=== PATIENT | female | born 1980 | race Caucasian/White ===

== ENCOUNTER 2018-10-30 17:29 | Emergency (ER) | payer OTHER, SELFPAY ==
[2018-10-30 17:30] VITALS: BP 136/73; PULSE 54; RESP 18; TEMP 37; O2SAT 99; BMI 20.3
--- NOTE | 2018-10-30 18:25 | US_ITS ---
STUDY: ULTRASOUND OF THE FEMALE PELVIS - COMPLETE REASON FOR EXAM: Female, 38 years old. Pain TECHNIQUE: Endovaginal TECHNICAL QUALITY: Adequate. COMPARISON: None. FINDINGS: The uterus has been surgically removed. The right ovary is visualized. The right ovary measures 3.7 x 2.6 x 2.1 cm. There is a 1.8 cm right ovarian cyst. There is normal arterial and normal venous vascularity. The left ovary is visualized. The left ovary measures 2.9 x 2.4 x 2.3 cm. There is a 1.4 cm left ovarian cyst. There is normal arterial and normal venous vascularity. There is no fluid in the cul-de-sac. US/Transvaginal Non- IMPRESSION: Bilateral ovarian cysts. Status post hysterectomy. Electronically Signed: Neno Newotn DO at 19:31 EDT Tel [phone], Service support ,
--- NOTE | 2018-10-30 18:26 | CT_ITS ---
STUDY: CT ABDOMEN AND PELVIS WITH AND WITHOUT CONTRAST REASON FOR EXAM: Female, 38 years old. Lower pelvic pain RADIATION DOSAGE (If Supplied By Facility): CTDIvol = ( 8.55 ) mGy, DLP = ( 568.75 ) mGycm TECHNIQUE: Transaxial images were obtained from the dome of the diaphragm to the symphysis pubis without oral contrast. 100 IV Isovue 300 was administered. Sagittal and coronal images were reconstructed. Individualized dose optimization techniques were used for this CT. COMPARISON: None. FINDINGS: The visualized lung bases are unremarkable. The visualized portions of the heart are within normal limits. Normal liver. Normal gallbladder and extrahepatic biliary system. Normal spleen. Normal pancreas. Normal bilateral adrenal glands. Normal right kidney. Normal left kidney. Normal visualized stomach. Normal small intestine. Normal colon. The appendix is not visualized. Normal abdominal aorta. Normal inferior vena cava. Normal retroperitoneum. Normal urinary bladder. Nonvisualization of the uterus. Normal abdominal wall. Normal osseous structures. CT/CT Abd/Pelvis W/WO Contrast IMPRESSION: Normal unenhanced and enhanced CT of the abdomen and pelvis. Electronically Signed: Neno Newton DO at 20:05 EDT Tel [phone], Service support ,
--- NOTE | 2018-10-30 18:27 | ED.DCSUM_ITS ---
- ER Visit Summary Date of Service: 10/30/18 Chief Complaint: Abdominal pain, dysuria History of Present Illness: The patient is a 38 F presenting with abdominal pain, dysuria. She states this started over the weekend. She states she had a partial hysterectomy August 03. This was due to concern for cancer. She states all of her tests have been negative for cancer. She states she had intercourse for the first time since the surgery this weekend. She started having pain lower abdomen. She also complains of dysuria. She denies bleeding other than mild pink tinged discharge. Denies other complaints. Physical Examination: Vitals are stable. Patient is afebrile. Alert no acute distress. HEENT exam is unremarkable. Neck is supple. Lungs are clear and equal bilaterally. Heart is regular rate and rhythm. Abdomen is soft suprapubic tenderness with no rebound or guarding : scar tissue surrounding vaginal cuff with minimal bleeding, no discharge Extremities are unremarkable. Skin is warm and dry. Remainder of exam is unremarkable. Emergency Department Course and Treatment: She was given morphine, Zofran IV. Pelvic ultrasound shows Bilateral ovarian cysts. Status post hysterectomy. CT abdomen pelvis shows no acute process. CBC normal except platelet 145. Chemistries unremarkable. Urinalysis unremarkable. Patient is resting comfortably. She is advised to use Aleve for pain at home. She is advised to f rajendralow closely with her [employer] SECONDS SOR[employer]. Advised to return to ED for worsening complaints. Disposition: Discharge home Impression: Pelvic pain, bilateral ovarian cysts This note was generated with [employer] dictation software. It may contain incorrect words, spelling, and punctuation that were not noted in review of the chart prior to signing ED Disposition - Plan for ED Patient: Instructions: ABDOMINAL PAIN, Unknown Cause, (Female), Ovarian Cyst Referrals: NOT,DEFINED [NON-STAFF] -
[2018-10-30 18:42] LABS: Bacteria 0 SEEN /hpf (None Seen); Mucous, Urine 0 SEEN /hpf (<or=2+); Red Blood Cells-Urine 0 SEEN /hpf (0-5); White Blood Cells 0 SEEN /hpf (0-5)
[2018-10-30 18:44] LABS: Absolute Lymphocyte Count 1.34 X10^3/uL (0.83-4.51); Absolute Neutrophil Count 4.3 X10^3/uL (2.0-7.7); Basophil# 0.03 X10^3/uL; Basophil% 0.4 % (0-1); Eosinophil# 0.27 X10^3/uL; Hematocrit 40.6 % (37-47); Hemoglobin 13.5 g/dL (12.0-15.0); Lymphocyte # 1.34 X10^3/ul (4.0); Lymphocyte % 19.9 % (19-41); Mean Corp Hgb Conc 33.3 g/dL (32-36); Mean Corpuscular Hgb 31.1 pg (27.0-32.0); Mean Corpuscular Volume 93.5 fL (81-99); Mean Platelet Vol. 10.2 fl (6.2-12.0); Monocyte# 0.78 X10^3/uL; Monocyte% 11.6 % (0-10); NRBC Flagged by Analyzer 0 % (0-5); Neutrophil # 4.29 X10^3/uL (2.7-7.7); Platelet Count 145 K/mm3 (150-450); RBC Distribution Width CV 12.4 % (11.6-14.6); RBC Distribution Width SD 43.4 fl (35.1-43.9); Red Blood Count 4.34 M/mm3 (4.2-5.4); White Blood Count 6.7 K/mm3 (4.4-11.0)
[2018-10-30 18:55] LABS: Color, Urine Yellow (Yellow); Glucose, Dipstick Normal (Normal); Ketone-Dipstick Negative (Negative); Leukocyte Esterase-Dipstick Negative /ul (Negative); Nitrite-Dipstick Negative (Negative); Occult Blood-Urine Negative /ul (Negative); Protein-Dipstick Negative (Negative); Urine Bilirubin Dipstick Negative (Negative); Urine Clarity Clear (Clear); Urine Urobilinogen Normal (Normal); Urine pH 6.5 (5.0 - 8.0)
[2018-10-30 19:05] LABS: Squamous Epithelial Cells - UA 0-5 SEEN /hpf (5-10)
[2018-10-30 19:07] LABS: Anion Gap 5 (5-15); BUN 9 mg/dL (7-18); BUN/Creat Ratio 14.1 RATIO (10-20); Chloride 108 mmol/L (98-107); Creatinine, Serum 0.64 mg/dL (0.55-1.02); EST Glomerular Filtration Rate 109 mL/min (>60); Est Glom Filt Rate - Afr Amer 132 mL/min (>60); Estimated Creatinine Clearance 96.22 ml/min; Glucose 86 mg/dL (74-106); Potassium 3.9 mmol/L (3.5-5.1); Sodium Level 141 mmol/L (136-145)
[2018-10-30] MEDS: Morphine 4 MG/ML Syringe IV (19:23)
[2018-10-30] MEDS: Ondansetron 4 MG/2 ML Vial IV (19:23)
[2018-10-30] MEDS: 0.9% Normal Saline 1,000 ML 1000 ML IV (19:23)
[2018-10-30 19:48] VITALS: BP 136/73; PULSE 54; RESP 18; TEMP 37; O2SAT 99
[2018-10-30 19:56] VITALS: BP 117/73; PULSE 52; RESP 16; O2SAT 100
--- NOTE | 2018-10-30 21:02 | ED.DEP ---
ED Disposition - Plan for ED Patient: Instructions: Ovarian Cyst, ABDOMINAL PAIN, Unknown Cause, (Female) Referrals: NOT,DEFINED [NON-STAFF] -
[2018-10-30 21:21] VITALS: BP 122/66; BP 126/73; PULSE 61; PULSE 96; RESP 16; RESP 17; O2SAT 97; O2SAT 99
== END 2018-10-30 21:22 | disposition home or self-care (01) ==
LOC: ED 18:41
PROVIDERS: Emergency Provider Emergency Medicine; Family Provider Family Medicine; PCP Family Medicine
DX: N83.202 Unspecified ovarian cyst, left side (principal); N83.201 Unspecified ovarian cyst, right side; R10.2 Pelvic and perineal pain; R30.0 Dysuria
CPT/HCPCS: 74178; 76830; 80048; 81001; 85025; 93976; 96361; 96374; 96375; 99283; J7030; Q9967; A4216; J2405

== ENCOUNTER 2020-01-20 10:41 | Emergency (ER) | payer BC, SELFPAY ==
[2020-01-20 10:42] VITALS: BP 157/104; PULSE 62; RESP 16; TEMP 36.3; O2SAT 100; BMI 18.8
--- NOTE | 2020-01-20 11:01 | CT_ITS ---
STUDY: CT BRAIN WITHOUT CONTRAST REASON FOR EXAM: Female, 39 years old. FELL OFF HORSE AND HIT HEAD MONDAY. SEEING RED AND GREEN OUT OF LEFT EYE YESTERDAY. PAIN IN NECK AND BACK OF HEAD, HEADACHE TODAY. SOME NAUSEA. RADIATION DOSAGE (If Supplied By Facility): CTDIvol = ( 44.99 ) mGy, DLP = ( 779.24 ) mGycm TECHNIQUE: Transaxial CT imaging of the brain was performed without administration of intravenous contrast material. Individualized dose optimization techniques were used for this CT. COMPARISON: No relevant priors. FINDINGS: Normal soft tissue structures. Normal calvarium. Normal size ventricles and extra-axial spaces for the patient''s age. Normal white matter tracts of the cerebral hemispheres. Normal basal ganglia and thalami. Normal brainstem. Normal cerebellum. There is no intracranial hemorrhage. There are no findings of an acute ischemic infarction. Normal visualized paranasal sinuses. CT/Brain/Head without Contrast IMPRESSION: Normal unenhanced CT scan of the brain. Electronically Signed: Jeanne Chino, at 11:53 EST Tel , Service support ,
--- NOTE | 2020-01-20 11:01 | CT_ITS ---
STUDY: CT CERVICAL SPINE WITHOUT CONTRAST REASON FOR EXAM: Female, 39 years old. FELL OFF HORSE AND HIT HEAD MONDAY. SEEING RED AND GREEN OUT OF LEFT EYE YESTERDAY. PAIN IN NECK AND BACK OF HEAD, HEADACHE TODAY. SOME NAUSEA. RADIATION DOSAGE (If Supplied By Facility): CTDIvol = ( 12.30 ) mGy, DLP = ( 229.50 ) mGycm TECHNIQUE: High resolution transaxial imaging was performed without contrast material. Sagittal and coronal images were reconstructed. Individualized dose optimization techniques were used for this CT. COMPARISON: None FINDINGS: Normal craniovertebral junction. Normal anterior atlantoaxial articulation. Normal odontoid process. Cervical straightening. No significant scoliosis. No acute cervical spine fracture, dislocation or osseous distraction. C2-3: Normal endplates. Normal disc height and morphology. Normal central canal and intervertebral neuroforamina. C3-4: Normal endplates. Normal disc height and morphology. Normal central canal and intervertebral neuroforamina. C4-5: Normal endplates. Normal disc height and morphology. Normal central canal and intervertebral neuroforamina. C5-6: Normal endplates. Normal disc height and morphology. Normal central canal and intervertebral neuroforamina. C6-7: Normal endplates. Normal disc height and morphology. Normal central canal and intervertebral neuroforamina. C7-T1: Normal endplates. Normal disc height and morphology. Normal central canal and intervertebral neuroforamina. Normal visualized soft tissue structures. CT/Spine Cervical without Contras IMPRESSION: Cervical spine acutely intact Cervical straightening without significant degenerative features Electronically Signed: Harry Goncalves DO at 11:32 EST Tel , Service support ,
--- NOTE | 2020-01-20 12:20 | ED.DCSUM_ITS ---
- ER Visit Summary Date of Service: 01/20/20 Chief Complaint: Fall History of Present Illness: The patient is a [address] Nicole. She reports that 3 days ago she was bucked off a horse and hit her head. She had a loss of consciousness for an unclear amount of time. She complains a headache is 5-10 severity and neck pain is 5-10 severity. She is not on anticoagulants. Patient reports that she has been nauseated. She has not vomited. She denies any back, shoulder, wrist, or hip pain. She reports that yesterday from her left eye that she saw red/green boxes flashing. She denies seeing that now. Her states that her vision is normal now. Physical Examination: Vitals: Stable. Afebrile. Neck: Mild diffuse tenderness palpation over her entire C-spine. There is no point tenderness.. Back: No vertebral tenderness. General: A&O x 3. NAD. Cardiovascular exam: Regular rate and rhythm, no murmur, rub or gallop. Respiratory exam: Chest nontender. No crepitus. Clear to auscultation bilaterally. No wheezes or stridor. Abdominal exam: Soft, nontender, nondistended, normal bowel sounds. No pain in RUQ or LUQ specifically. No peritoneal signs. Extremity: Atraumatic. No pain with range of motion. Test Results: Clinical Impression(s) from Imaging Studies Brain CT 01/20/20 11:01 IMPRESSION: Normal unenhanced CT scan of the brain. Electronically Signed: Jeanne Chino, at 11:53 EST Tel , Service support , Cervical Spine CT 01/20/20 11:01 IMPRESSION: Cervical spine acutely intact Cervical straightening without significant degenerative features Electronically Signed: Harry Goncalves DO at 11:32 EST Tel , Service support , Emergency Department Course and Treatment: Patient is resting comfortably. She refused pain or nausea medications. Treatment Plan: Patient will be discharged instructed to follow-up with her primary care physician 1 week for her concussion. She is instructed to follow- up Dr. Lucero in 1 to 2 days if her vision is not returned to normal. Return to the emergency department for any worsening symptoms. Disposition: To home in improved and stable condition. Impression: 1. Concussion. 2. Visual changes. 3. Cervical strain. This note was generated with [employer] software. It may contain incorrect words, spelling, and punctuation that were not noted in review of the chart prior to signing ED Disposition - Plan for ED Patient: Disposition: Home or Assisted Living Instructions: ED Concussion Referrals: Landon Nicole MD [Primary Care Provider] - 1 Week Landon Lucero MD [STAFF PHYSICIAN] - 1-2 Days if not improving
[2020-01-20 12:26] VITALS: BP 133/75; PULSE 52; RESP 17; O2SAT 97
== END 2020-01-20 12:27 | disposition home or self-care (01) ==
LOC: ED 11:34
PROVIDERS: Emergency Provider Emergency Medicine; PCP Family Medicine
DX: S06.0X9A Concussion with loss of consciousness of unspecified duration, initial encounter (principal); S16.1XXA Strain of muscle, fascia and tendon at neck level, initial encounter; Y93.52 Activity, horseback riding; V80.010A Animal-rider injured by fall from or being thrown from horse in noncollision accident, initial encounter
CPT/HCPCS: 70450; 72125; 99282

== ENCOUNTER 2020-08-15 18:18 | Emergency (ER) | payer BC, SELFPAY ==
[2020-08-15 18:19] VITALS: BP 150/99; PULSE 61; RESP 14; TEMP 37.1; O2SAT 95; BMI 18.7
--- NOTE | 2020-08-15 18:41 | RAD_ITS ---
STUDY: X-RAY CHEST REASON FOR EXAM: Female, 40 years old. Cough TECHNIQUE: Frontal portable view of the chest COMPARISON: None. FINDINGS: Examination is limited due to density degenerated by breast prostheses obscuring midlung zones. Upper lungs and lower lungs are clear. There is no pneumothorax, pulmonary edema or pleural effusion. Osseous structures are intact. RAD/Chest 1 View (Portable) IMPRESSION: Technically limited exam. Unable to evaluate bilateral mid lung zones. Consider performing bilateral, right and left obliques and lateral radiographic view as the next imaging step. If those are normal probability of disease is low. Electronically Signed: Brittany Fontanez MD at 19:19 EDT Tel , Service support ,
[2020-08-15 19:02] LABS: Absolute Lymphocyte Count 2.09 X10^3/uL (0.83-4.51); Absolute Neutrophil Count 1.6 X10^3/uL (2.0-7.7); Basophil# 0.03 X10^3/uL; Basophil% 0.7 % (0-1); Eosinophil# 0.41 X10^3/uL; Eosinophils% 8.9 % (0-5); Hematocrit 45.9 % (37-47); Hemoglobin 15.3 g/dL (12.0-15.0); Lymphocyte # 2.09 X10^3/ul (0.83-4.51); Lymphocyte % 45.4 % (19-41); Mean Corp Hgb Conc 33.3 g/dL (32-36); Mean Corpuscular Hgb 30.5 pg (27.0-32.0); Mean Corpuscular Volume 91.6 fL (81-99); Mean Platelet Vol. 9.4 fl (6.2-12.0); Monocyte% 10.9 % (0-10); NRBC Flagged by Analyzer 0 % (0-5); Neutrophil # 1.57 X10^3/uL (2.7-7.7); Neutrophil % 34.1 % (47-70); Platelet Count 194 K/mm3 (150-450); RBC Distribution Width CV 12.3 % (11.6-14.6); RBC Distribution Width SD 41.6 fl (35.1-43.9); Red Blood Count 5.01 M/mm3 (4.2-5.4); White Blood Count 4.6 K/mm3 (4.4-11.0)
[2020-08-15 19:18] LABS: AST(SGOT) 19 U/L (15-37); Alanine Aminotransfer ALT/SGPT 18 U/L (13-56); Albumin, Serum 3.5 g/dL (3.2-5.0); Alkaline Phosphatase 77 U/L (45-117); Anion Gap 6 (5-15); BUN 18 mg/dL (7-18); BUN/Creat Ratio 24.1 RATIO (10-20); Calcium,Total 8.8 mg/dL (8.5-10.1); Chloride 106 mmol/L (98-107); Creatinine, Serum 0.75 mg/dL (0.55-1.02); EST Glomerular Filtration Rate 90 mL/min (>60); Est Glom Filt Rate - Afr Amer 109 mL/min (>60); Estimated Creatinine Clearance 74.04 ml/min; Globulin 3.6 g/dL (2.2-4.2); Glucose 83 mg/dL (74-106); Potassium 3.9 mmol/L (3.5-5.1); Protein, Total 7.1 g/dL (6.4-8.2); Sodium Level 140 mmol/L (136-145)
[2020-08-15 19:25] VITALS: BP 156/94; PULSE 56; RESP 18; TEMP 36.9; O2SAT 95
[2020-08-15 19:41] LABS: D-Dimer Quantitative (DVT/PE) <= 0.27 FEU/ug/m (0.27-0.49)
--- NOTE | 2020-08-15 20:29 | EX.ED.DYSGE1 ---
HPI History of Present Illness Chief Complaint: Cough Informant: patient Onset/Context/Timing Onset: Month(s) (5) Context: Gradual Onset Timing: Waxes and wanes Quality: Wheezing, coughing Location: Chest Worsened by: Exertion, laying flat Narrative Narrative: Patient presents with cough that has gotten worse over the past few days. Patient states it is been waxing and waning over the past 5 months. Patient states she feels like she is wheezing and coughing. Patient states it is worse with any exertion and with laying flat. Patient states she feels short of breath at times. Patient states she received her second Covid vaccine on 06/25/2020. Her first Covid vaccine was 4 weeks before that. Patient states she is coughing up some clear and yellow sputum. Patient admits to some nausea but denies any vomiting. Patient also admits to some upper back pain and upper chest pain. [facility] Medical History (Updated 08/15/20 @ 20:[address] Harry Elias DO) Anxiety Depression Fibromyalgia Hernia Home Medications buspirone 7.5 mg PO BID 01/20/20 [History Last Taken Unknown] norgestimate-ethinyl estradiol 28 mg PO DAILY 01/20/20 [History Last Taken Unknown] sertraline 100 mg PO DAILY 01/20/20 [History Last Taken Unknown] albuterol sulfate [Ventolin HFA] 1 - 2 puff INHALATION Q4H PRN PRN #1 inhaler 08/15/20 [Rx Last Taken Unknown] gabapentin 100 mg PO TID 08/15/20 [History Last Taken Unknown] Allergy/AdvReac Type Severity Reaction Status Date / Time No Known Allergies Allergy Verified 08/15/20 18:22 Surgical History (Updated 08/15/20 @ 20:[address] Harry Elias DO) H/O: hysterectomy History of section History of lumbar discectomy Social History Smoking Status: Never smoker ROS ROS ED Constitutional Constitutional ED: Denies chills or fever(s) Eyes Eyes: Denies blurry vision or change in vision ENT ENT ED: Reports rhinorrhea and sore throat Cardiovascular Cardiovascular: Reports chest pain; Denies palpitations Respiratory/Chest Respiratory/Chest: Reports cough and dyspnea Gastrointestinal Gastrointestinal: Reports nausea; Denies vomiting Genitourinary Genitourinary ED: Denies dysuria or hematuria Musculoskeletal Musculoskeletal: Reports back pain; Denies neck pain Integumentary Denies abscess or rash Neurologic Neurologic: Denies headache(s) or weakness Allergic/Immunologic Allergic/Immunologic ED: Reports urticaria; Denies mouth swelling or tongue swelling EXAM Physical Exam Const Vital Signs: 08/15/20 18:19 08/15/20 18:57 08/15/20 19:25 Temperature 98.8 F 98.5 F Temperature Source Temporal Temporal Pulse Rate 61 56 L Respiratory Rate 14 18 Respiratory Effort Normal Non-Labored Respiratory Depth Normal Respiratory Pattern Normal Blood Pressure 150/99 H 156/94 H Blood Pressure Mean 116 114 Pulse Ox 95 95 Oxygen Delivery Method Room Air Room Air Positive well nourished and well developed General Appearance ED: well developed HEENT Reports moist mucous membranes Neck supple and no JVD Resp normal respiratory effort Auscultation: rhonchi and wheezes Cardio regular rate, regular rhythm and no murmurs GI normal to inspection, nondistended, normoactive bowel sounds and non-tender Palpation: soft Extremity normal to inspection General Extremety ED: Negative for edema or tenderness General Extremity: Negative for edema Neuro oriented x3, CN's II-XII intact bilaterally and no sensory deficits noted Sensorium / Orientation: alert Motor Exam: strength 5/5 throughout Psych mental status grossly normal Skin no rashes or lesions noted MDM MDM MDM Narrative Medical decision making narrative: CBC was within normal limits. Comprehensive metabolic profile was normal. D-dimer was normal. Portable 1 view chest x-ray was obtained. On my interpretation, lung crain are clear. There is normal cardiac silhouette. Bony thorax is normal. There is no acute process noted. Radiologist also interpreted the x-ray and agrees. Patient was given a DuoNeb aerosol here. Patient was given a prescription for albuterol inhaler. Patient was instructed to follow-up with her primary care physician in 5 to 7 days. Patient understood and was agreeable with the plan. All questions were answered. Lab Data Attestation: I reviewed the patient's lab results. Labs: Laboratory Results - last 24 hr 08/15/20 08/15/20 08/15/20 18:55 18:55 18:55 WBC 4.6 RBC 5.01 Hgb 15.3 H Hct 45.9 MCV 91.6 MCH 30.5 MCHC 33.3 RDW Std Deviation 41.6 RDW Coeff of Emmy 12.3 Plt Count 194 MPV 9.4 Immature Gran % (Auto) 0.000 Neut % (Auto) 34.1 L Lymph % (Auto) 45.4 H Chaves % (Auto) 10.9 H Eos % (Auto) 8.9 H Baso % (Auto) 0.7 Absolute Neuts (auto) 1.6 L Absolute Lymphs (auto) 2.09 Nucleated RBC % 0 D-Dimer Quant (PE/DVT) <= 0.27 Sodium 140 Potassium 3.9 Chloride 106 Carbon Dioxide 28.0 Anion Gap 6 BUN 18 Creatinine 0.75 Estim Creat Clear Calc 74.04 Est GFR (MDRD) Af Amer 109 Est GFR (MDRD) Non-Af 90 BUN/Creatinine Ratio 24.1 H Glucose 83 Calcium 8.8 Total Bilirubin 0.40 AST 19 ALT 18 Alkaline Phosphatase 77 Total Protein 7.1 Albumin 3.5 Globulin 3.6 Albumin/Globulin Ratio 1.0 Radiography Chest X-Ray - ED: 1 View, Read by ED Physician, Read by Radiologist and Normal Diagnostic Testing: Radiology Impression Chest X-Ray 08/15/20 18:41 IMPRESSION: Technically limited exam. Unable to evaluate bilateral mid lung zones. Consider performing bilateral, right and left obliques and lateral radiographic view as the next imaging step. If those are normal probability of disease is low. Electronically Signed: Brittany Fontanez MD at 19:19 EDT Tel , Service support , Discharge Plan Triage Chief Complaint: Cough ED Provider: Harry Elias Dx/Rx/DC Orders Clinical Impression: Acute bronchitis, viral Instructions: ED Bronchitis with Wheezing (Adult) Prescriptions: New albuterol sulfate [Ventolin HFA] 1 INHALER inhaler 1 - 2 puff inhalation Q4H PRN PRN (Reason: Wheezing) Qty: 1 RF: 0 No Action norgestimate-ethinyl estradiol 1 TABLET tablet 28 mg PO DAILY RF: 0 sertraline 100 MG tablet 100 mg PO DAILY RF: 0 buspirone 15 MG tablet 7.5 mg PO BID RF: 0 gabapentin 100 mg capsule 100 mg PO TID RF: 0 Primary Care Provider: Landon Nicole Referrals: Landon Nicole MD [Primary Care Provider] - 5-7 Days Disposition Disposition: Home, self care
[2020-08-15 20:44] VITALS: BP 132/82; PULSE 78; RESP 18; O2SAT 97
[2020-08-15] MEDS: Ipratropium/Albuterol Sulfate 3 ML AMPUL.NEB INHALATION (20:47)
[2020-08-15 20:49] VITALS: PULSE 58; RESP 16
== END 2020-08-15 21:00 | disposition home or self-care (01) ==
PROVIDERS: Emergency Provider Emergency Medicine; PCP Family Medicine
DX: J20.8 Acute bronchitis due to other specified organisms (principal); F32.9 Major depressive disorder, single episode, unspecified; Z79.899 Other long term (current) drug therapy
CPT/HCPCS: 71045; 80053; 85025; 85379; 87426; 94640; 99283; A4216

== ENCOUNTER 2021-04-09 20:49 | Emergency (ER) | payer BC, SELFPAY ==
[2021-04-09 20:50] VITALS: BP 133/78; PULSE 77; RESP 16; TEMP 36.1; O2SAT 100; BMI 19.8
--- NOTE | 2021-04-09 20:54 | RAD_ITS ---
STUDY: X-RAY - RIGHT KNEE REASON FOR EXAM: Female, 40 years old. pt kicked by horse to Rt leg a few days ago. Painful to ambulate. TECHNIQUE: 3 view(s) of the knee. COMPARISON: None. FINDINGS: Normal visualized distal femur. Normal visualized proximal tibia and fibula. Normal proximal tibiofibular articulation. There is no demonstrated fracture. Normal medial femorotibial compartment. Normal lateral femorotibial compartment. Normal patellofemoral articulation. There is no demonstrated joint effusion. The soft tissue structures are unremarkable. RAD/Knee 3 Views IMPRESSION: Normal x-ray examination of the knee. Electronically Signed: Dequan Zhu MD at 22:00 EST Reading Location ID and State: [facility] / [place] , Service support ,
--- NOTE | 2021-04-09 21:05 | RAD_ITS ---
STUDY: X-RAY - RIGHT FEMUR REASON FOR STUDY: Female, 40 years old. A small laceration injury and skin loss defect is seen in the nailbed region of the index finger. TECHNIQUE: 4 view(s) of the femur. COMPARISON: None. FINDINGS: Normal visualized femur. Normal visualized soft tissue structure. There is no demonstrated fracture or destructive process. RAD/Femur Min 2 Views IMPRESSION: Normal x-ray examination of the femur. Electronically Signed: Dequan Zhu MD at 21:50 EST ,
[2021-04-09 22:22] VITALS: BP 134/72; PULSE 78; RESP 18; O2SAT 99
--- NOTE | 2021-04-09 23:19 | EDS_ITS ---
HPI History of Present Illness HPI Narrative: Patient presents with injury to her right thigh that occurred yesterday. Patient states she was kicked by her horse yesterday. Patient was able to ambulate yesterday. Patient states it hurts with ambulation. Patient describes her pain as stabbing. Patient admits to some tingling down into her foot. Patient denies any weakness. Patient denies any other injuries. Chief Complaint: Lower Extremity Injury Informant: patient Occured/Mechanism Mechanism/Context: Yes blunt trauma Onset/Context/Timing Onset: Yesterday Context: Sudden Onset Timing: Continuous Quality of Pain: Stabbing Location: Right distal thigh Worsened by: Ambulation and certain movements Relieved by: Nothing Associated Symptoms Associated Symptoms: Positive for Parasthesia; Negative for Weakness and Loss of Funtion [facility] Medical History Anxiety Depression Fibromyalgia Hernia Home Medications buspirone 7.5 mg PO BID 01/20/20 [History Last Taken Unknown] sertraline 100 mg PO DAILY 01/20/20 [History Last Taken Unknown] albuterol sulfate [Ventolin HFA] 1 - 2 puff INHALATION Q4H PRN PRN #1 inhaler 08/15/20 [Rx Last Taken Unknown] gabapentin 100 mg PO TID 08/15/20 [History Last Taken Unknown] montelukast [Singulair] 10 mg PO DAILY 04/09/21 [History Last Taken Unknown] Allergy/AdvReac Type Severity Reaction Status Date / Time No Known Allergies Allergy Verified 04/09/21 20:53 Surgical History H/O: hysterectomy History of section History of lumbar discectomy Social History Smoking Status: Never smoker ROS ROS ED Constitutional Constitutional ED: Denies chills or fever(s) Eyes Eyes: Denies blurry vision or change in vision ENT ENT ED: Denies rhinorrhea or sore throat Cardiovascular Cardiovascular: Denies chest pain or palpitations Respiratory/Chest Respiratory/Chest: Denies cough or dyspnea Gastrointestinal Gastrointestinal: Reports nausea; Denies vomiting Genitourinary Genitourinary ED: Denies dysuria or hematuria Musculoskeletal Musculoskeletal: Denies back pain or neck pain Integumentary Denies abscess or rash Neurologic Neurologic: Denies headache(s) or weakness Allergic/Immunologic Allergic/Immunologic ED: Denies mouth swelling or urticaria EXAM Physical Exam Const Vital Signs: 04/09/21 20:50 04/09/21 22:22 Temperature 97.0 F L Temperature Source Temporal Pulse Rate 77 78 Respiratory Rate 16 18 Blood Pressure 133/78 H 134/72 H Blood Pressure Mean 96 92 Pulse Ox 100 99 Oxygen Delivery Method Room Air Room Air Positive well nourished and well developed General Appearance ED: well developed and NAD HEENT normocephalic Neck full ROM and supple Extremity Extremity Narrative: There is tenderness over the lateral aspect of the right distal thigh. There is some mild edema. There is no ecchymosis. There is no deformity. There is no knee effusion. There is good range of motion of the right hip and right knee. There is no laxity appreciated. Varus and valgus stress test were negative. Wilton's test was negative. Sensation was intact to light touch bilaterally in lower extremities. Posterior tibial pulses are equal bilaterally. There is no calf tenderness. Neuro oriented x3, CN's II-XII intact bilaterally, moves all extremities and no sensory deficits noted Sensorium / Orientation: alert Motor Exam: strength 5/5 throughout Psych mental status grossly normal MDM MDM MDM Narrative Medical decision making narrative: X-rays of the right femur were obtained. There are views. On my interpretation, there is no acute fracture. There is no dislocation. There is no soft tissue swelling. Radiologist also interpreted the x-ray and agrees. X-rays of the right knee were obtained. There are 3 views. On my interpretation, there is no acute fracture or dislocation. There is no soft tissue swelling. There is no effusion. Radiologist also interpreted the x-rays and agrees. Patient was advised of her findings. Patient was instructed use ice to the area. Patient was instructed to take Tylenol or ibuprofen as needed for pain. Patient was given restrictions for work. Patient was instructed to follow-up with her primary care physician in 5 to 7 days. Patient understood and was agreeable with the plan. All questions were answered. Radiography Diagnostic Testing: Clinical Impression(s) from Imaging Studies Knee X-Ray 04/09/21 20:54 IMPRESSION: Normal x-ray examination of the knee. Electronically Signed: Dequan Zhu MD at 22:00 EST Reading Location ID and State: [address] [place] [address] , Service support , Femur X-Ray 04/09/21 21:05 IMPRESSION: Normal x-ray examination of the femur. Electronically Signed: Dequan Zhu MD at 21:50 EST Reading Location ID and State: [address] [place] [address] , Service support , ADDENDUM: 04/09/212237 Discharge Plan Triage Chief Complaint: Lower Extremity Injury ED Provider: Harry Elias Dx/Rx/DC Orders Clinical Impression: Contusion of left thigh, initial encounter Instructions: ED Contusion, Lower Extremity Prescriptions: No Action sertraline 100 MG tablet 100 mg PO DAILY RF: 0 buspirone 15 MG tablet 7.5 mg PO BID RF: 0 gabapentin 100 mg capsule 100 mg PO TID RF: 0 albuterol sulfate [Ventolin HFA] 1 INHALER inhaler 1 - 2 puff inhalation Q4H PRN PRN (Reason: Wheezing) Qty: 1 RF: 0 montelukast [Singulair] 10 mg Tablet 10 mg PO DAILY RF: 0 Stand Alone Forms: Work Status Form Primary Care Provider: Landon Nicole Referrals: Landon Nicole MD [Primary Care Provider] - 5-7 Days Disposition Disposition: Home, Self Care Discharge Date/Time: 04/09/21 23:25
== END 2021-04-09 23:25 | disposition home or self-care (01) ==
PROVIDERS: Emergency Provider Emergency Medicine; PCP Family Medicine; Visit Provider Emergency Medicine
DX: S70.12XA Contusion of left thigh, initial encounter (principal); F41.9 Anxiety disorder, unspecified; F32.A Depression, unspecified; W55.12XA Struck by horse, initial encounter; Z79.899 Other long term (current) drug therapy
CPT/HCPCS: 73552; 73562; 99282